=== PATIENT | female | born 1960 | race African-American/Black ===

== ENCOUNTER 2024-09-30 13:31 | Emergency (ER) | payer MEDICARE, MEDICAID ==
[~2024-09-30] VITALS: Ht 170.2 cm; Wt 111.0 kg
[2024-09-30 13:35] VITALS: O2SAT 98
[2024-09-30] MEDS ORDERED: KETO10TA2 MT (17:34)
[2024-09-30] MEDS: KETOROLAC 30MG/ML VIAL IM ONE (17:57)
[2024-09-30 18:27] VITALS: BP 120/56; PULSE 88; RESP 20; TEMP 37; O2SAT 99
[2024-09-30] MEDS ORDERED: KETOROLAC 30MG/ML VIAL IM ONE (18:30)
== END 2024-09-30 18:28 | disposition home or self-care (01) ==
LOC: ER 13:31
DX: M25.472 Effusion, left ankle (principal); I10 Essential (primary) hypertension; J45.909 Unspecified asthma, uncomplicated; E03.9 Hypothyroidism, unspecified; Z88.1 Allergy status to other antibiotic agents
CPT/HCPCS: 99283; 73610; 96372; J1885